=== PATIENT | female | born 1945 | race African-American/Black ===

== ENCOUNTER 2017-08-30 07:44 | Observation (INO) | payer MEDICARE ==
[~2017-08-30] VITALS: Ht 152.4 cm; Wt 80.1 kg
[2017-08-30 08:39] LABS: HEMATOCRIT 42.6 % (37.0-47.0); HEMOGLOBIN 13.9 g/dl (12.0-16.0); IMMATURE GRANULOCYTES 0.1 % (0.0-1.0); MEAN CELL VOLUME 90.3 fL CALC (80.0-100.0); MEAN CORPUSCULAR HGB 29.4 pG CALC (26.0-32.0); MEAN CORPUSCULAR HGB CONC 32.6 g/L CALC (32.0-36.0); NEUT# 3.15 thou/uL (2.00-7.15); RED BLOOD COUNT 4.72 mill/uL (4.20-5.60); RED CELL DISTRI WIDTH 12.6 % (11.5-15.5)
[2017-08-30 08:59] LABS: ANION GAP 16 (6-22 (CALC)); BUN 13 mg/dL (8-23); BUN/CREATININE RATIO 16 (12-20 (CALC)); CARBON DIOXIDE 27 mmol/l (22-30); CHLORIDE 107 mmol/l (95-108); CREATININE 0.8 mg/dL (0.5-1.0); GFR > 60 ML/MIN (>=60 (CALC)); GFR FOR AFR.AMER. > 60 ML/MIN (>=60 (CALC)); POTASSIUM 3.8 mmol/l (3.5-5.1); SODIUM 146 mmol/l (137-146)
[2017-08-30 10:07] VITALS: BP 139/82
[2017-08-30] MEDS ORDERED: OMEPRAZOLE20 MG PO (11:34)
[2017-08-30] MEDS ORDERED: AMLOD/BENAZP1 CA3 PO (11:35)
[2017-08-30] MEDS ORDERED: LOSARTAN POT25 MG PO (11:35)
[2017-08-30] MEDS ORDERED: ZOCOR20 M1 PO (11:35)
[2017-08-30] MEDS ORDERED: ASPIRIN 81 LOW81 MG PO (11:36)
[2017-08-30 16:24] VITALS: BP 110/68
[2017-08-30 19:10] VITALS: BP 138/80
[2017-08-31 00:20] VITALS: BP 121/71
[2017-08-31 04:20] VITALS: BP 126/90
[2017-08-31 05:29] LABS: HEMATOCRIT 39.9 % (37.0-47.0); HEMOGLOBIN 13.2 g/dl (12.0-16.0); IMMATURE GRANULOCYTES 0.1 % (0.0-1.0); MEAN CELL VOLUME 90.1 fL CALC (80.0-100.0); MEAN CORPUSCULAR HGB 29.8 pG CALC (26.0-32.0); MEAN CORPUSCULAR HGB CONC 33.1 g/L CALC (32.0-36.0); NEUT# 2.73 thou/uL (2.00-7.15); RED BLOOD COUNT 4.43 mill/uL (4.20-5.60); RED CELL DISTRI WIDTH 12.6 % (11.5-15.5)
[2017-08-31 05:49] LABS: ANION GAP 16 (6-22 (CALC)); BUN 12 mg/dL (8-23); BUN/CREATININE RATIO 16 (12-20 (CALC)); CALCULATED LDLCHOLESTEROL 76 mg/dL (62-129 (CALC)); CARBON DIOXIDE 27 mmol/l (22-30); CHLORIDE 105 mmol/l (95-108); CHOLESTEROL HDL RATIO 2.3 (<4.4 (CALC)); CREATININE 0.8 mg/dL (0.5-1.0); GFR > 60 ML/MIN (>=60 (CALC)); GFR FOR AFR.AMER. > 60 ML/MIN (>=60 (CALC)); HDL CHOLESTEROL 69 mg/dL (>=40); POTASSIUM 4.1 mmol/l (3.5-5.1); SODIUM 143 mmol/l (137-146); TOTAL CHOLESTEROL 159 mg/dl (0-199); TOTAL TRIGLYCERIDES 76 mg/dl (30-149); VLDL CHOLESTROL 15 mg/dl (0-48 (CALC))
[2017-08-31 09:25] VITALS: BP 148/77
[2017-08-31 11:36] VITALS: BP 141/87
[2017-08-31] MEDS ORDERED: ANTIVERT PO (12:00)
== END 2017-08-31 13:10 | disposition home or self-care (01) ==
LOC: ED 07:44 → ED-I 09:13 → ED 09:26 → MS2 09:27 → ED 09:42 → ED-I 09:42 → MS2 08-31 13:10
PROVIDERS: Family Medicine; Nurse Practitioner Family; ADMIT Internal Medicine; ATTEND Internal Medicine
DX: R42 Dizziness and giddiness (principal); I10 Essential (primary) hypertension; K21.9 Gastro-esophageal reflux disease without esophagitis; E78.5 Hyperlipidemia, unspecified; Z86.011 Personal history of benign neoplasm of the brain; Z98.890 Other specified postprocedural states

== ENCOUNTER 2019-07-10 18:08 | Emergency (ER) | payer MEDICARE ==
[~2019-07-10 18:08] MED LIST: AMLOD/BENAZP1 CA3 PO; ANTIVERT PO; ASPIRIN 81 LOW81 MG PO; LOSARTAN POT25 MG PO; OMEPRAZOLE20 MG PO; ZOCOR20 M1 PO
[2019-07-10 18:35] VITALS: BP 136/76
== END 2019-07-10 18:36 | disposition left against medical advice (07) ==
LOC: ED 18:08 → LWOBS 18:36 → ED 18:36
DX: Z53.21 Procedure and treatment not carried out due to patient leaving prior to being seen by health care provider (principal)

== ENCOUNTER 2022-02-18 16:45 | Emergency (ER) | payer MEDICARE ==
[~2022-02-18] VITALS: Ht 152.4 cm; Wt 70.0 kg
[2022-02-18 17:06] VITALS: BP 155/81
[2022-02-18] MEDS ORDERED: GABAPENTIN300 M2 PO (17:17)
[2022-02-18 18:03] VITALS: BP 149/78
[2022-02-18 18:08] VITALS: BP 149/78
== END 2022-02-18 18:10 | disposition home or self-care (01) ==
LOC: ED 16:45
DX: M54.50 Low back pain, unspecified (principal); I10 Essential (primary) hypertension; E78.5 Hyperlipidemia, unspecified; K21.9 Gastro-esophageal reflux disease without esophagitis

== ENCOUNTER 2022-09-12 15:43 | Emergency (ER) | payer MEDICARE ==
[~2022-09-12] VITALS: Ht 152.4 cm; Wt 70.3 kg
[~2022-09-12 15:43] MED LIST changes: +GABAPENTIN300 M2 PO
[2022-09-12 16:10] VITALS: BP 150/84
[2022-09-12] MEDS ORDERED: KEFLEX500 MG PO (16:15)
[2022-09-12] MEDS ORDERED: MEDDOSEPAK PO (16:15)
== END 2022-09-12 16:24 | disposition home or self-care (01) ==
LOC: ED 15:43
DX: L03.114 Cellulitis of left upper limb (principal); I10 Essential (primary) hypertension; E78.5 Hyperlipidemia, unspecified; K21.9 Gastro-esophageal reflux disease without esophagitis; Z82.61 Family history of arthritis

== ENCOUNTER 2023-02-13 14:39 | Observation (INO) | payer MEDICARE ==
[2023-02-13] VITALS (9 sets, daily range): BP systolic 141–180; BP diastolic 71–109
[~2023-02-13] VITALS: Ht 152.4 cm; Wt 77.6 kg
[~2023-02-13 14:39] MED LIST changes: +KEFLEX500 MG PO; +MEDDOSEPAK PO
[2023-02-13 15:06] LABS: BASO% 0.6 % (0-3); EOS% 1.8 % (0-8); HEMATOCRIT 37.2 % (37.0-47.0); HEMOGLOBIN 12.2 g/dl (12.0-16.0); IMMATURE GRANULOCYTES 0.1 % (0.0-5.0); LYMPH% 40.5 % (15-41); MEAN CORPUSCULAR HGB 29.2 pG CALC (26.0-32.0); MEAN CORPUSCULAR HGB CONC 32.8 g/dL CAL (32.0-36.0); NEUT# 4.11 thou/uL (2.00-7.15); RED BLOOD COUNT 4.18 mill/uL (4.20-5.60); RED CELL DISTRI WIDTH 13.3 % (11.5-15.5)
[2023-02-13 15:21] LABS: ALBUMIN 4.1 g/dL (3.2-5.0); ALKALINE PHOSPHATASE 65 u/l (38-126); ANION GAP 13 (6-22 (CALC)); BILIRUBIN, TOTAL 1.2 mg/dL (0.02-1.3); BUN 16 mg/dL (8-23); BUN/CREATININE RATIO 17 (12-20 (CALC)); CARBON DIOXIDE 25 mmol/l (22-30); CHLORIDE 107 mmol/l (95-108); CREATININE 0.9 mg/dL (0.5-1.0); GFR FOR AFR.AMER. > 60 ML/MIN (>=60 (CALC)); GFR OTHER RACES 60 ML/MIN (>=60 (CALC)); POTASSIUM 3.5 mmol/l (3.5-5.1); SGOT/AST 31 u/l (9-36); SODIUM 141 mmol/l (137-146)
[2023-02-13] MEDS ORDERED: LASIX 40 MG TAB40 MG PO (16:16)
[2023-02-14 04:24] VITALS: BP 135/79
[2023-02-14 04:35] VITALS: BP 161/84
[2023-02-14 05:15] LABS: HEMATOCRIT 35.9 % (37.0-47.0); HEMOGLOBIN 11.3 g/dl (12.0-16.0); MEAN CELL VOLUME 91.3 fL CALC (80.0-100.0); MEAN CORPUSCULAR HGB 28.8 pG CALC (26.0-32.0); MEAN CORPUSCULAR HGB CONC 31.5 g/dL CAL (32.0-36.0); RED BLOOD COUNT 3.93 mill/uL (4.20-5.60); RED CELL DISTRI WIDTH 13.3 % (11.5-15.5)
[2023-02-14 05:49] LABS: ANION GAP 11 (6-22 (CALC)); BUN 19 mg/dL (8-23); BUN/CREATININE RATIO 21 (12-20 (CALC)); CALCULATED LDLCHOLESTEROL 47 mg/dL (62-129 (CALC)); CARBON DIOXIDE 22 mmol/l (22-30); CHLORIDE 110 mmol/l (95-108); CHOLESTEROL HDL RATIO 2.4 (<4.4 (CALC)); CREATININE 0.9 mg/dL (0.5-1.0); GFR FOR AFR.AMER. > 60 ML/MIN (>=60 (CALC)); GFR OTHER RACES 60 ML/MIN (>=60 (CALC)); HDL CHOLESTEROL 50 mg/dL (39.0-59.0); POTASSIUM 3.8 mmol/l (3.5-5.1); SODIUM 139 mmol/l (137-146); TOTAL CHOLESTEROL 122 mg/dl (0-199); TOTAL TRIGLYCERIDES 123 mg/dl (0-149); VLDL CHOLESTROL 25 mg/dl (0-48 (CALC))
[2023-02-14 06:42] VITALS: BP 156/76
[2023-02-14 07:06] VITALS: BP 156/76
[2023-02-14 09:05] VITALS: BP 156/76
[2023-02-14] MEDS ORDERED: TOPROL XL25 MG PO (11:22)
== END 2023-02-14 17:12 | disposition home or self-care (01) ==
LOC: ED 14:39 → MS2 16:57
PROVIDERS: Family Medicine; ADMIT Student in an Organized Health Care Education/Training Program; ATTEND Student in an Organized Health Care Education/Training Program
DX: R07.89 Other chest pain (principal); I10 Essential (primary) hypertension; E78.5 Hyperlipidemia, unspecified; K21.9 Gastro-esophageal reflux disease without esophagitis; E66.9 Obesity, unspecified; Z77.120 Contact with and (suspected) exposure to mold (toxic)
CPT/HCPCS: J1650